=== PATIENT | female | born 1970 | race Caucasian/White ===

== ENCOUNTER 2022-07-09 11:26 | Outpatient (CLI) | payer OTHER | END 2022-07-09 11:42 | disposition home or self-care (01) | LOC: MAMO-SONO 11:26 | PROVIDERS: ATTEND Internal Medicine | DX: Z12.31 Encounter for screening mammogram for malignant neoplasm of breast (principal); N63.0 Unspecified lump in unspecified breast ==

== ENCOUNTER 2022-08-30 02:04 | Emergency (ER) | payer OTHER ==
[~2022-08-30] VITALS: Ht 167.6 cm; Wt 72.6 kg
[2022-08-30] MEDS ORDERED: ATORVASTATIN CA10 MG PO (02:20)
== END 2022-08-30 05:27 | disposition home or self-care (01) ==
LOC: ER 02:04
DX: R42 Dizziness and giddiness (principal); R00.2 Palpitations; Z88.0 Allergy status to penicillin; Z88.6 Allergy status to analgesic agent

== ENCOUNTER → 2022-09-12 10:47 | Outpatient (CLI) | payer OTHER ==
[~2022-09-12 10:47] MED LIST: ATORVASTATIN CA10 MG PO
== END | disposition home or self-care (01) ==
LOC: LAB 10:47
PROVIDERS: ATTEND Internal Medicine
DX: D64.9 Anemia, unspecified (principal); N39.0 Urinary tract infection, site not specified; R10.9 Unspecified abdominal pain; E03.9 Hypothyroidism, unspecified; E78.5 Hyperlipidemia, unspecified; E11.9 Type 2 diabetes mellitus without complications

== ENCOUNTER 2022-11-13 10:33 | Emergency (ER) | payer OTHER ==
[~2022-11-13] VITALS: Ht 167.6 cm; Wt 72.6 kg
[2022-11-13] MEDS ORDERED: NORVASC5 MG (11:28)
[2022-11-13] MEDS ORDERED: ZESTRIL30 MG (11:28)
[2022-11-13] MEDS ORDERED: HYDROCHLOROTHIA50 MG (11:28)
== END 2022-11-13 13:59 | disposition home or self-care (01) ==
LOC: ER 10:33
DX: R00.2 Palpitations (principal); Z88.0 Allergy status to penicillin; Z88.5 Allergy status to narcotic agent

== ENCOUNTER 2023-01-29 15:26 | Emergency (ER) | payer OTHER ==
[~2023-01-29] VITALS: Ht 167.6 cm; Wt 72.6 kg
[~2023-01-29 15:26] MED LIST changes: +HYDROCHLOROTHIA50 MG; +NORVASC5 MG; +ZESTRIL30 MG
== END 2023-01-29 18:40 | disposition home or self-care (01) ==
LOC: ER 15:26
DX: M54.2 Cervicalgia (principal); Z88.0 Allergy status to penicillin; Z88.6 Allergy status to analgesic agent

== ENCOUNTER → 2023-02-19 | Outpatient (CLI) | payer OTHER | END | disposition home or self-care (01) | LOC: RAD 11:11 | DX: S00.03XA Contusion of scalp, initial encounter (principal) ==

== ENCOUNTER 2023-02-22 14:33 | Emergency (ER) | payer OTHER ==
[~2023-02-22] VITALS: Ht 167.6 cm; Wt 72.6 kg
== END 2023-02-22 17:13 | disposition home or self-care (01) ==
LOC: ER 14:33
DX: M54.2 Cervicalgia (principal); Z88.0 Allergy status to penicillin; Z88.8 Allergy status to other drugs, medicaments and biological substances; R20.2 Paresthesia of skin

== ENCOUNTER 2023-03-18 21:36 | Emergency (ER) | payer OTHER ==
[~2023-03-18] VITALS: Ht 167.6 cm; Wt 72.6 kg
== END 2023-03-19 00:57 | disposition home or self-care (01) ==
LOC: ER
PROVIDERS: General Practice
DX: R53.81 Other malaise (principal); R07.89 Other chest pain; Z20.822 Contact with and (suspected) exposure to COVID-19; Z88.0 Allergy status to penicillin; Z88.5 Allergy status to narcotic agent

== ENCOUNTER 2023-05-28 16:39 | Emergency (ER) | payer OTHER ==
[~2023-05-28] VITALS: Ht 167.6 cm; Wt 71.7 kg
[2023-05-28 19:18] LABS: HEMATOCRIT 37.1 % (36.0-45.00); HEMOGLOBIN 12.5 g/dL (12.0-15.00); MEAN CELL VOLUME 88.7 fL (80.00-100.00); MEAN CORPUSCULAR HEMOGLOBIN 29.9 pg (27.00-32.0); MEAN CORPUSCULAR HGB CONC 33.8 g/dl (32.0-36.0); PLATELET COUNT 307 K/uL (150-450); RED BLOOD COUNT 4.19 M/uL (4.00-6.00); RED CELL DISTRIBUTION WIDTH 14.4 % (11.5-14.5)
[2023-05-28 19:19] LABS: PH,URINE 6.5 (5.0-8.0); URINE APPEARANCE Clear; URINE BILIRRUBIN Negative (NEGATIVE); URINE BLOOD Negative; URINE COLOR Yellow; URINE GLUCOSE Negative (NEGATIVE); URINE LEUKOCYTE Negative; URINE NITRATE Negative; URINE PROTEIN Negative (NEGATIVE); URINE UROBILINOGEN 0.2 E.U./dl
[2023-05-28 19:24] LABS: URINE RBC 3.5 uL (0.0-20.8)
[2023-05-28 19:29] LABS: URINE BACTERIA 1.2 uL (0.0-1933); URINE EPITHELIAL CELLS 1.3 uL (0.0-38.8); URINE WBC 1.6 uL (0.0-23.2)
[2023-05-28] MEDS ORDERED: INTESTINEX680 M1 PO (20:19)
[2023-05-28] MEDS ORDERED: IPRAT-ALBUT 0.5-3 ML IH (20:19)
== END 2023-05-28 20:25 | disposition home or self-care (01) ==
LOC: ER 16:39
PROVIDERS: Nurse Practitioner Family
DX: J06.9 Acute upper respiratory infection, unspecified (principal); Z88.0 Allergy status to penicillin; Z88.6 Allergy status to analgesic agent; Z20.822 Contact with and (suspected) exposure to COVID-19

== ENCOUNTER 2023-09-22 18:14 | Emergency (ER) | payer OTHER ==
[~2023-09-22] VITALS: Ht 170.2 cm; Wt 75.7 kg
[~2023-09-22 18:14] MED LIST changes: +INTESTINEX680 M1 PO; +IPRAT-ALBUT 0.5-3 ML IH
[2023-09-22] MEDS ORDERED: EZALLOR SPRINKL10 MG (18:32)
[2023-09-22 23:27] LABS: HEMATOCRIT 40.4 % (36.0-45.00); HEMOGLOBIN 13.6 g/dL (12.0-15.00); MEAN CELL VOLUME 90.2 fL (80.00-100.00); MEAN CORPUSCULAR HEMOGLOBIN 30.3 pg (27.00-32.0); MEAN CORPUSCULAR HGB CONC 33.6 g/dl (32.0-36.0); PLATELET COUNT 365 K/uL (150-450); RED BLOOD COUNT 4.48 M/uL (4.00-6.00); RED CELL DISTRIBUTION WIDTH 13.9 % (11.5-14.5)
[2023-09-22 23:39] LABS: BILIRUBIN TOTAL 0.57 mg/dL (0.3-1.2); CALCIUM 9.7 mg/dL (8.5-10.1); CREATININE SERUM 0.85 mg/dL (0.55-1.02); GFR 69.96; GLOBULINA 4.2 G/DL (2.4-3.5); POTASSIUM 4.09 mEq/L (3.5-5.1); TOTAL PROTEIN 8.2 gm/dL (6.4-8.2)
[2023-09-23] MEDS ORDERED: ANTIVERT25 M2 PO (00:09)
== END 2023-09-23 00:28 | disposition home or self-care (01) ==
LOC: ER 18:15
PROVIDERS: General Practice
DX: R42 Dizziness and giddiness (principal); Z88.0 Allergy status to penicillin; Z88.8 Allergy status to other drugs, medicaments and biological substances

== ENCOUNTER 2024-02-14 13:05 | Emergency (ER) | payer OTHER ==
[~2024-02-14] VITALS: Ht 167.6 cm; Wt 68.0 kg
[~2024-02-14 13:05] MED LIST changes: +ANTIVERT25 M2 PO; +EZALLOR SPRINKL10 MG
[2024-02-14] MEDS ORDERED: FAMOTIDINE/PF 20 MG/2 ML VIAL IV PUSH STA (14:03)
[2024-02-14 14:29] LABS: HEMATOCRIT 39.5 % (36.0-45.00); HEMOGLOBIN 13.4 g/dL (12.0-15.00); MEAN CELL VOLUME 90.1 fL (80.00-100.00); MEAN CORPUSCULAR HEMOGLOBIN 30.7 pg (27.00-32.0); PLATELET COUNT 348 K/uL (150-450); RED BLOOD COUNT 4.38 M/uL (4.00-6.00); RED CELL DISTRIBUTION WIDTH 13.4 % (11.5-14.5)
[2024-02-14 14:52] LABS: CALCIUM 9.5 mg/dL (8.5-10.1); CREATININE SERUM 0.72 mg/dL (0.55-1.02); GFR 84.73; POTASSIUM 3.86 mEq/L (3.5-5.1)
== END 2024-02-14 15:19 | disposition home or self-care (01) ==
LOC: ER 13:05
PROVIDERS: General Practice
DX: K29.70 Gastritis, unspecified, without bleeding (principal); R07.89 Other chest pain; Z88.0 Allergy status to penicillin; Z88.8 Allergy status to other drugs, medicaments and biological substances

== ENCOUNTER → 2024-08-16 | Emergency (ER) | payer OTHER ==
[~2024-08-16] VITALS: Ht 162.6 cm; Wt 68.0 kg
[~2024-08-16] MED LIST changes: +0.9 % SODIUM CHLORIDE 1,000 ML IV ONE; +FAMOTIDINE/PF 20 MG/2 ML VIAL IV PUSH STA; +FAMOTIDINE/PF 20 MG/2 ML VIAL ONE; +KETOROLAC TROMETHAMINE 30 MG VIAL ONE; +LACTOBACILLUS ACIDOPHILUS 1 CAP CAP PO ONE; +PEPCID40 MG PO; +PROMETHAZINE HCL 50 MG/ML AMPUL IM ONE; +PROMETHAZINE HCL 50 MG/ML AMPUL IM STA; +PROTONIX40 MG PO; +ZOFRAN8 MG PO
[2024-08-16 21:14] VITALS: BP 117/80; O2SAT 98
[2024-08-17 01:42] LABS: HEMATOCRIT 39.9 % (36.0-45.00); HEMOGLOBIN 13.6 g/dL (12.0-15.00); MEAN CELL VOLUME 89.3 fL (80.00-100.00); MEAN CORPUSCULAR HEMOGLOBIN 30.4 pg (27.00-32.0); PLATELET COUNT 353 K/uL (150-450); RED BLOOD COUNT 4.47 M/uL (4.00-6.00); RED CELL DISTRIBUTION WIDTH 14.3 % (11.5-14.5)
[2024-08-17 01:56] LABS: ALBUMIN 3.4 gm/dL (3.4-5.0); BILIRUBIN TOTAL 0.86 mg/dL (0.3-1.2); BILIRUBIN,CONJUGATED 0.2 mg/dL (0.0-0.2); BILIRUBIN,UNCONJUGATED 0.66 mg/dL (0.0-0.6); CREATININE SERUM 0.76 mg/dL (0.55-1.02); GFR 79.31; GLOBULINA 4.1 G/DL (2.4-3.5); POTASSIUM 3.88 mEq/L (3.5-5.1); TOTAL PROTEIN 7.5 gm/dL (6.4-8.2)
[2024-08-17 06:40] LABS: PH,URINE 6.5 (5.0-8.0); URINE APPEARANCE Clear; URINE BILIRRUBIN Negative (NEGATIVE); URINE BLOOD Negative; URINE COLOR Yellow; URINE GLUCOSE Negative (NEGATIVE); URINE KETONE Negative (NEGATIVE); URINE LEUKOCYTE Negative; URINE NITRATE Negative; URINE PROTEIN Negative (NEGATIVE)
[2024-08-17 06:42] LABS: URINE BACTERIA 64.8 uL (0.0-1933); URINE EPITHELIAL CELLS 2.5 uL (0.0-38.8); URINE RBC 95.3 uL (0.0-20.8); URINE WBC 6.3 uL (0.0-23.2)
== END | disposition home or self-care (01) ==
LOC: ER 20:55
PROVIDERS: General Practice
DX: R10.13 Epigastric pain (principal); Z88.0 Allergy status to penicillin; Z88.8 Allergy status to other drugs, medicaments and biological substances

== ENCOUNTER 2024-12-21 21:09 | Emergency (ER) | payer OTHER ==
[~2024-12-21] VITALS: Ht 167.6 cm; Wt 72.6 kg
[~2024-12-21 21:09] MED LIST changes: -0.9 % SODIUM CHLORIDE 1,000 ML IV ONE; -FAMOTIDINE/PF 20 MG/2 ML VIAL IV PUSH STA; -FAMOTIDINE/PF 20 MG/2 ML VIAL ONE; -KETOROLAC TROMETHAMINE 30 MG VIAL ONE; -LACTOBACILLUS ACIDOPHILUS 1 CAP CAP PO ONE; -PROMETHAZINE HCL 50 MG/ML AMPUL IM ONE; -PROMETHAZINE HCL 50 MG/ML AMPUL IM STA
== END 2024-12-22 04:07 | disposition home or self-care (01) ==
LOC: ER 21:15
DX: R00.2 Palpitations (principal); Z88.0 Allergy status to penicillin; Z88.5 Allergy status to narcotic agent